=== PATIENT | female | born 1945 | race Native Hawaiian/Other Pacific Islander ===

== ENCOUNTER 2022-08-09 11:36 | Outpatient (CLI) | payer OTHER, MEDICARE ==
[2022-08-09 12:12] LABS: PLATELET COUNT 175 K/uL (152-353)
[2022-08-09 12:21] LABS: POTASSIUM 5.3 mmol/L (3.6-5.2)
== END 2022-08-09 19:04 | disposition home or self-care (01) ==
LOC: LABW 11:36
PROVIDERS: ATTEND Internal Medicine Hematology & Oncology
DX: C18.2 Malignant neoplasm of ascending colon (principal); C54.1 Malignant neoplasm of endometrium; C50.412 Malignant neoplasm of upper-outer quadrant of left female breast; C78.7 Secondary malignant neoplasm of liver and intrahepatic bile duct; D70.1 Agranulocytosis secondary to cancer chemotherapy
CPT/HCPCS: 36415; 80053; 82378; 85027

== ENCOUNTER 2023-03-21 09:47 | Emergency (ER) | payer MEDICARE ==
[~2023-03-21] VITALS: Ht 167.6 cm; Wt 68.0 kg
[2023-03-21 09:54] VITALS: BP 142/59; TEMP 99.6
[2023-03-21 10:46] LABS: PLATELET COUNT 66 K/uL (152-353)
[2023-03-21 11:08] LABS: POTASSIUM 4.5 mmol/L (3.6-5.2)
== END 2023-03-21 14:05 | disposition short-term general hospital (02) ==
LOC: ED 09:47
PROVIDERS: Emergency Medicine Emergency Medical Services
DX: D61.818 Other pancytopenia (principal); E83.42 Hypomagnesemia; E86.0 Dehydration
CPT/HCPCS: 80053; 81000; 83605; 83735; 84484; 85007; 85027; 87040; 87077; 87086; 87088; 87186; 87502; 87635; 87651; 93005; 96360; 96361; 96365; 96375; 99284; J0696; J3475; U0003

== ENCOUNTER 2023-07-13 10:41 | Outpatient (CLI) | payer OTHER, MEDICARE ==
[2023-07-13 11:03] LABS: PLATELET COUNT 285 K/uL (152-353)
[2023-07-13 11:10] LABS: POTASSIUM 4.9 mmol/L (3.6-5.2)
== END 2023-07-13 19:17 | disposition home or self-care (01) ==
LOC: LABW 10:41
PROVIDERS: ATTEND Internal Medicine Hematology & Oncology
DX: C18.2 Malignant neoplasm of ascending colon (principal); C54.1 Malignant neoplasm of endometrium; C50.412 Malignant neoplasm of upper-outer quadrant of left female breast; Z12.31 Encounter for screening mammogram for malignant neoplasm of breast; C78.7 Secondary malignant neoplasm of liver and intrahepatic bile duct; D70.1 Agranulocytosis secondary to cancer chemotherapy
CPT/HCPCS: 36415; 80053; 82378; 85027